=== PATIENT | female | born 1985 | race Caucasian/White ===

== ENCOUNTER 2021-04-09 17:55 | Inpatient (IN) ==
[2021-04-09] MEDS ORDERED: Melatonin 3 MG TABLET PO PRN (20:30)
[2021-04-09] MEDS ORDERED: Naloxone 0.4 MG/ML INJ IVP PRN (20:30)
[2021-04-09] MEDS ORDERED: cefTRIAXone 1,000 MG in 0.9 % Sodium Chloride Mini Bag 100 ML IVPB SCH (23:00)
[2021-04-09] MEDS: 0.9 % Sodium Chloride 1,000 ML IVC SCH (23:44)
[2021-04-10 00:45] LABS: Basophils % 0.1 %; Hemoglobin 8.1 g/dL (11.5-15.4); Mean Corpuscular Hemoglobin 25.6 pg (28.0-33.3); Red Blood Count 3.17 M/mcL (3.82-4.97)
[2021-04-10 00:47] LABS: Eosinophils % 0.1 %; Hematocrit 25.6 % (35.3-44.9); Immature Granulocytes % 2.4 % (0-4); Mean Corpuscular HGB Conc 31.6 g/dL (31.6-35.5); Mean Corpuscular Volume 80.8 fL (83.0-100.0); Monocytes # 0.2 K/mcL (0.0-1.3); Platelet Count 131 K/mcL (140-400); Red Cell Distribution Width 18.5 % (11.5-14.5); Segmented Neutrophils % 80.4 %; White Blood Count 7.4 K/mcL (4.3-11.1)
[2021-04-10 01:01] LABS: Calcium 6.9 mg/dL (8.6-10.3); INR 1.7; Magnesium 1.7 mg/dL (1.6-2.6); Phosphorous 3.6 mg/dL (2.7-4.5); Potassium 3.8 mEq/L (3.5-5.1); Prothrombin Time 18.7 Seconds (9.4-12.1)
[2021-04-10 01:04] LABS: Iron 30 mcg/dL (50-170)
[2021-04-10 01:30] LABS: Thyroid Stimulating Hormone 0.554 mcIU/mL (0.340-5.600)
[2021-04-10 01:45] LABS: Hypochromasia Present (Not Present); Platelet Estimate Normal (Normal)
[2021-04-10] MEDS ORDERED: *HR* HYDROcodone/Acet 10/325 mg TABLET PO ONE (04:29)
[2021-04-10 05:43] LABS: Ferritin 420 ng/mL (10-120)
[2021-04-10] MEDS ORDERED: Perflutren Lipid Microsphere 1.3 ML in 0.9 % Sodium Chloride 8.7 ML IVP PRN (07:42)
[2021-04-10] MEDS ORDERED: *HR* OxyCODONE/APAP 5/325 TABLET PO PRN (07:44)
[2021-04-10] MEDS: *HR* LORazepam 2 MG/ML VIAL IVP PRN ×2 (09:18→21:31)
[2021-04-10] MEDS ORDERED: Ondansetron 4 MG/2 ML VIAL IVP PRN (11:07)
[2021-04-10] MEDS ORDERED: Isovue-370 500 ML BOTTLE IVP ONE (11:41)
[2021-04-10] MEDS ORDERED: Vancomycin 1,250 MG/262.5 ML IV.SOLN IVPB ONE (13:00)
[2021-04-10 14:13] LABS: Complement C3 51 mg/dL (87-200)
[2021-04-10 14:36] LABS: Hepatitis B Surface Antigen Nonreactive (Nonreactive)
[2021-04-10] MEDS ORDERED: Cefepime HCl 1,000 MG in 0.9 % Sodium Chloride Mini Bag 100 ML IVPB SCH (16:00)
[2021-04-10 16:39] LABS: Hepatitis C Virus Antibody Reactive (Nonreactive)
[2021-04-10] MEDS: 0.9 % Sodium Chloride 1,000 ML IVC SCH ×3 (17:42→17:45)
[2021-04-10 18:52] LABS: Sodium, Urine 23.5 mEq/L
[2021-04-10 18:54] LABS: Bacteria,Urine Few per hpf (None-Few); Bilirubin,Urine Negative (Negative); Blood,Urine Large (Negative); Clarity,Urine Turbid (Clear); Color,Urine Light-Orange (Yellow); Glucose,Urine (UA) Normal (Normal); Ketones,Urine Negative (Negative); Leukocyte Esterase,Urine Small (Negative); Nitrite,Urine Negative (Negative); Protein,Urine 100 mg/dL (Neg-Trace); RBC,Urine TNTC per hpf (0-3); Specific Gravity,Urine 1.013 (1.010-1.025); Squamous Epithelial Cell,Urine Few per hpf (None-Few); Urobilinogen,Urine Normal (Normal); WBC,Urine 30-50 per hpf (0-3)
[2021-04-10 22:34] LABS: Adenovirus Not Detected (Not Detect); Coronavirus 229E Not Detected (Not Detect); Coronavirus HKU1 Not Detected (Not Detect); Coronavirus NL63 Not Detected (Not Detect); Coronavirus OC43 Not Detected (Not Detect)
[2021-04-10 22:35] LABS: Bordetella Pertussis Not Detected (Not Detect); Chlamydophila pneumoniae Not Detected (Not Detect); Human Metapneumovirus Not Detected (Not Detect); Human Rhinovirus/Enterovirus Not Detected (Not Detect); Influenza A Subtype 2009 H1 Not Detected (Not Detect); Influenza B Not Detected (Not Detect); Mycoplasma pneumoniae Not Detected (Not Detect); Parainfluenza Virus 1 Not Detected (Not Detect); Parainfluenza Virus 2 Not Detected (Not Detect); Parainfluenza Virus 3 Not Detected (Not Detect); Parainfluenza Virus 4 Not Detected (Not Detect); Respiratory Syncytial Virus Not Detected (Not Detect); SARS-CoV-2 DETECTED (Not Detect)
[2021-04-10] MEDS ORDERED: Menthol 1 EACH LOZENGE PO PRN (23:48)
[2021-04-11] MEDS: 0.9 % Sodium Chloride 1,000 ML IVC SCH (02:45)
[2021-04-11] MEDS ORDERED: *HR* Enoxaparin 40 MG/0.4 ML SYRINGE SQ SCH (06:00)
[2021-04-11] MEDS ORDERED: Ipratropium 1 PUFF INHALER IH PRN (08:08)
[2021-04-11 12:03] LABS: Hematocrit 20.6 % (35.3-44.9); Hemoglobin 6.7 g/dL (11.5-15.4); Mean Corpuscular HGB Conc 32.5 g/dL (31.6-35.5); Mean Corpuscular Hemoglobin 26.2 pg (28.0-33.3); Mean Corpuscular Volume 80.5 fL (83.0-100.0); Mean Platelet Volume 11.1 fL (9.4-12.4); Platelet Count 138 K/mcL (140-400); Red Blood Count 2.56 M/mcL (3.82-4.97); White Blood Count 8.4 K/mcL (4.3-11.1)
[2021-04-11 12:20] LABS: Alanine Aminotransferase 10 Units/L (7-52); Albumin 2.5 g/dL (3.5-5.7); Albumin/Globulin Ratio 0.6 (1.1-2.2); Alkaline Phosphatase 146 Units/L (34-104); Aspartate Amino Transferase 24 Units/L (13-39); BUN/Creatinine Ratio 27 (6-26); Bilirubin,Direct 0.2 mg/dL (0.0-0.2); Bilirubin,Indirect 0.7 mg/dL (0.0-1.0); Bilirubin,Total 0.9 mg/dL (0.3-1.0); Blood Urea Nitrogen 31 mg/dL (6-20); Calcium 7.5 mg/dL (8.6-10.3); Carbon Dioxide 21 mEq/L (23-29); Chloride 102 mEq/L (98-107); Globulin 4.3 g/dL (2.4-3.5); Glucose 112 mg/dL (70-105); Magnesium 1.8 mg/dL (1.6-2.6); Osmolality,Calculated 281 (280-300); Phosphorous 4.2 mg/dL (2.7-4.5); Potassium 3.4 mEq/L (3.5-5.1); Sodium 132 mEq/L (136-145); Total Protein 6.8 g/dL (6.4-8.9); Vancomycin,Trough 7 mcg/mL (5-10); eGFR For African Americans > 60 (> 60); eGFR For Non-African Americans 54 (> 60)
[2021-04-11] MEDS ORDERED: 0.9 % Sodium Chloride 250 ML IVC SCH (12:45)
[2021-04-11 12:51] LABS: Basophils # 0.2 K/mcL (0.0-0.2); Lymphocytes # 0.5 K/mcL (0.6-4.6); Monocytes # 0.5 K/mcL (0.0-1.3); Neutrophils # 7.2 K/mcL (1.6-8.9); Platelet Estimate Slight Decrease (Normal)
[2021-04-11 14:15] VITALS: BP 127/78; PULSE 105; TEMP 98.1; O2SAT 100
[2021-04-11] MEDS ORDERED: Pantoprazole 40 MG VIAL IVP SCH (18:00)
[2021-04-12 10:33] LABS: % Iron Saturation 11 % (15-50); Transferrin 192 mg/dL (203-362)
[2021-04-13 23:35] LABS: HIV-1 Ab Supplemental NEGATIVE (Negative); HIV-2 Ab Supplemental NEGATIVE (Negative)
[2021-04-14 00:13] LABS: HCV Quant Log NOT DETECTED log IU/mL
[2021-04-14 09:47] LABS: Anti-Streptolysin O Antibody 149 IU/mL (0-330); HCV Quant Interpretation NOT DETECTED (Not Detected)
[2021-04-14 15:01] LABS: ANA IgG by ELISA NONE DETECTED (None Detected)
[2021-04-14 15:02] LABS: GBM IgG Multiplex Bead Assay 1 AU/mL (0-19); Glomerular Basement Memb IgG NEGATIVE (Negative)
== END 2021-04-11 15:33 | disposition left against medical advice (07) | DRG 720 ==
LOC: 3ANU → SUATTDRO 19:47 → 3ANU 04-10 22:37
PROVIDERS: ADMIT Internal Medicine; ATTEND Internal Medicine